=== PATIENT | female | born 2000 | race Hispanic/Latino ===

== ENCOUNTER 2024-01-26 10:09 | Emergency (ER) | payer SELFPAY ==
[2024-01-26] MEDS ORDERED: KETOROLAC 30 MG/ML INJ ONE (11:05)
[2024-01-26] MEDS ORDERED: HYDROCODONE/APAP 5/325 MG TAB ONE (11:05)
[2024-01-26] MEDS ORDERED: LIDOCAINE 2% W/EPI 1:200,000 MPF 20 ML VIAL IM ONE (11:05)
--- NOTE | 2024-01-26 11:32 | EDPHYS ---
Physician Documentation [facility] Name: Kareem Bridges Age: 23 yrs Sex: Female : 2000 Arrival Date: 01/26/2024 Time: 10:09 Bed 15 Private MD: ED Physician Fahad Peña HPI: 01/25 11:03 This 23 yrs old Female presents to ER via Unassigned with complaints of sb4 Abscess. 11:03 The patient presents with an abscess of the right axilla. Description: erythematous, sb4 fluctuant, swollen, tense, warm. Onset: The symptoms/episode began/occurred 4 day(s) ago. Possible cause(s): unknown. Associated signs and symptoms: Pertinent positives: erythema, Pertinent negatives: discharge, drainage, fever. The patient has not experienced similar symptoms in the past. 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 - Infectious Disease History:: Denies. - Social history:: Smoking status: Patient denies any tobacco usage or history of. ROS: 11:03 Constitutional: Negative for fever, chills, and weight loss, sb4 11:03 Skin: Positive for abscess, of the right axilla, 11:03 All other systems are negative, Exam: 11:03 Constitutional: This is a well developed, well nourished patient who is awake, alert, sb4 and in no acute distress. Head/Face: Normocephalic, atraumatic. Eyes: Extra-ocular motions intact. Periorbital areas with no swelling, redness, or edema. ENT: Mucous membranes moist. 11:03 Skin: abscess, that is moderate sized, of the right axilla, with fluctuance, with induration, with surrounding cellulitis, Vital Signs: 11:00 BP 125 / 86; Pulse 85; Resp 16; Temp 97.9; Pulse Ox 100% ; Weight 46.27 kg; db 11:30 BP 109 / 66; Pulse 73; Resp 16; Pulse Ox 100% on R/A; db 12:00 BP 124 / 76; Pulse 80; Resp 18; Pulse Ox 100% on R/A; db Procedures: 11:30 I \T\ D: Incision and drainage was performed for an abscess of the right axilla. Prepped sb4 with chlorhexadine. Anesthetized with 2 ml's 2% Lidocaine. Incised with #11 blade. Drained moderate amount purulent fluid. Dressing: bandaid the patient tolerated the procedure well. MDM: 10:21 Patient medically screened. reynaldo 11:30 Data reviewed: vital signs, nurses notes, and as a result, I will discharge patient. sb4 Counseling: I had a detailed discussion with the patient and/or guardian regarding the historical points, exam findings, and any diagnostic results supporting the discharge/admit diagnosis, to return to the emergency department if symptoms worsen or persist or if there are any questions or concerns that arise at home. Administered Medications: 11:12 Drug: Ketorolac IM 30 mg IM once Route: IM; Site: left deltoid; db 11:53 Follow up: Response: No adverse reaction; Pain is decreased db 11:14 Drug: HYDROcodone-acetaminophen PO 5 mg-325 mg 1 tabs PO once Route: PO; db 11:52 Follow up: Response: No adverse reaction; Pain is decreased db 11:32 Drug: Lidocaine-Epinephrine Infiltration -1%: (1:100,000) 10 ml 20 ml Infiltration sb4 once; to bedside Volume: 20 ml; Route: Infiltration; 11:52 Follow up: Response: No adverse reaction db 12:00 Drug: Trimethoprim-Sulfamethoxazole PO (160 mg-800 mg (DS) 1 tablet PO once Route: PO; db 12:13 Follow up: Response: No adverse reaction db Disposition Summary: 01/26/24 11:31 Discharge Ordered Notes: Location: Home sb4 Problem: new sb4 Symptoms: have improved sb4 Condition: Stable sb4 Diagnosis - Cutaneous abscess of right axilla sb4 Followup: sb4 - With: Emergency Department - When: As needed - Reason: Fever > 102 F, Worsening of condition Discharge Instructions: - Discharge Summary Sheet sb4 - Skin Abscess, Cgin-[id number] sb4 - Incision and Drainage, Care After sb4 Forms: - Antibiotic Education sb4 - Patient Portal Instructions sb4 - Leadership Thank You Letter sb4 Prescriptions: - Bactrim DS 800-160 mg Oral Tablet - take 1 tablet ORAL route every 12 hours for 10 days; 20 tablet; Refills: 0, sb4 Product Selection Permitted Signatures: Dispatcher [employer] EDFahad Hunter MD MD cha Benton, Danielle, RN RN Maria Luz Thompson PA-C PA-C sb4 Corrections: (The following items were deleted from the chart) 10:52 10:34 Misc. Order ordered. reynaldo sb4 10:59 10:34 Dressing - Wound ordered. reynaldo sb4 10:59 10:34 Sterile Gloves ordered. reynaldo sb4 10:59 10:34 Setup Suture Tray ordered. reynaldo sb4
[2024-01-26] MEDS ORDERED: SMZ./TMP. 800/160 MG TABLET ONE (12:02)
--- NOTE | 2024-01-26 12:18 | ER ---
Nurse's Notes [facility] Name: Kareem Bridges Age: 23 yrs Sex: Female : 2000 Arrival Date: 01/26/2024 Time: 10:09 Bed 15 Private MD: Diagnosis: Cutaneous abscess of right axilla Presentation: 01/25 11:00 Chief complaint: Patient states: RIGHT AXILLARY ABSCESS X 4 DAYS. TOOK NAPROXEN AT db HOME. HAS RIGHT ARM PAIN. 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 Coronavirus screen: Client denies travel out of the [place] in the last 14 days. At this time, the client does not indicate any symptoms associated with coronavirus-19. Ebola Screen: Patient negative for fever greater than or equal to 101.5 degrees Fahrenheit, and additional compatible Ebola Virus Disease symptoms Patient denies exposure to infectious person. Patient denies travel to an Ebola-affected area in the 21 days before illness onset. No symptoms or risks identified at this time. Initial Sepsis Screen: Does the patient meet any 2 criteria? No. Patient's initial sepsis screen is negative. Does the patient have a suspected source of infection? No. Patient's initial sepsis screen is negative. Risk Assessment: Do you want to hurt yourself or someone else? Patient reports no desire to harm self or others. Onset of symptoms was January 26, 2024. 11:00 Method Of Arrival: Ambulatory db 11:00 Acuity: GRISEL 4 db Triage Assessment: 11:00 General: Appears in no apparent distress. comfortable, Behavior is calm, cooperative. db Pain: Complains of pain in right arm and right axilla. Neuro: Level of Consciousness is awake, alert, obeys commands, Oriented to person, place, time, situation. 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 - Infectious Disease History:: Denies. - Social history:: Smoking status: Patient denies any tobacco usage or history of. Screenin:15 [facility] ED Fall Risk Assessment (Adult) History of falling in the last 3 months, db including since admission No falls in past 3 months (0 pts) Confusion or Disorientation No (0 pts) Intoxicated or Sedated No (0 pts) Impaired Gait No (0 pts) Mobility Assist Device Used No (0 pt) Altered Elimination No (0 pt) Score/Fall Risk Level 0 - 2 = Low Risk Oriented to surroundings, Maintained a safe environment. Abuse screen: Denies threats or abuse. Denies injuries from another. Nutritional screening: No deficits noted. Tuberculosis screening: No symptoms or risk factors identified. Assessment: 11:05 Reassessment: SEE TRIAGE FOR ASSESSMENT. db 11:30 Reassessment: Patient appears in no apparent distress at this time. Patient and/or db family updated on plan of care and expected duration. Pain level reassessed. Patient is alert, oriented x 3, equal unlabored respirations, skin warm/dry/pink. General: Appears in no apparent distress. comfortable, Behavior is calm, cooperative. Neuro: Level of Consciousness is awake, alert, obeys commands, Oriented to person, place, time, situation. Cardiovascular: No deficits noted. Derm: Abscess located on right axilla. 12:16 Reassessment: Patient appears in no apparent distress at this time. Patient and/or db family updated on plan of care and expected duration. Pain level reassessed. Patient is alert, oriented x 3, equal unlabored respirations, skin warm/dry/pink. Patient states feeling better. Vital Signs: 11:00 BP 125 / 86; Pulse 85; Resp 16; Temp 97.9; Pulse Ox 100% ; Weight 46.27 kg; db 11:30 BP 109 / 66; Pulse 73; Resp 16; Pulse Ox 100% on R/A; db 12:00 BP 124 / 76; Pulse 80; Resp 18; Pulse Ox 100% on R/A; db ED Course: 10:21 Patient arrived in ED. ra3 10:21 Maria Luz Hernandes PA-C is PHCP. sb4 10:21 Emilio Haynes MD is Attending Physician. sb4 10:21 Attending Physician role handed off by Emilio Haynes MD reynaldo 10:21 Fahad Peña MD is Attending Physician. reynaldo 11:00 Arm band placed on Patient placed in an exam room. db 11:03 Cristela Ramírez, CHIARA is Primary Nurse. db 11:15 Assist provider with I \T\ D: of an abscess on right axilla Set up I\T\D tray. Performed by db Maria Luz Hernandes PA-C. 11:54 Triage completed. db 12:15 Patient has correct armband on for positive identification. Bed in low position. Call db light in reach. Side rails up X 1. Provided Education on: DISCHARGE. Pulse ox on. NIBP on. Warm blanket given. Pillow given. 12:15 Patient did not have IV access during this emergency room visit. db Administered Medications: 11:12 Drug: Ketorolac IM 30 mg IM once Route: IM; Site: left deltoid; db 11:53 Follow up: Response: No adverse reaction; Pain is decreased db 11:14 Drug: HYDROcodone-acetaminophen PO 5 mg-325 mg 1 tabs PO once Route: PO; db 11:52 Follow up: Response: No adverse reaction; Pain is decreased db 11:32 Drug: Lidocaine-Epinephrine Infiltration -1%: (1:100,000) 10 ml 20 ml Infiltration sb4 once; to bedside Volume: 20 ml; Route: Infiltration; 11:52 Follow up: Response: No adverse reaction db 12:00 Drug: Trimethoprim-Sulfamethoxazole PO (160 mg-800 mg (DS) 1 tablet PO once Route: PO; db 12:13 Follow up: Response: No adverse reaction db Medication: 12:15 VIS not applicable for this client. db Outcome: 11:31 Discharge ordered by . sb4 12:15 Discharged to home ambulatory, db 12:15 Condition: stable 12:15 Discharge instructions given to patient, Instructed on discharge instructions, follow up and referral plans. Prescriptions given X 1, 12:17 Patient left the ED. db Signatures: Fahad Peña MD MD cha Benton, Danielle, RN RN Maria Luz Thompson PA-C PA-C sb4 Tamia Brantley ra3
[2024-01-26 12:21] VITALS: TEMP 97.9; O2SAT 100
[2024-01-26 12:24] VITALS: BP 124/76
== END 2024-01-26 12:17 | disposition home or self-care (01) ==
LOC: ER 10:09
PROC: 0H9BXZZ Drainage of Right Upper Arm Skin, External Approach (ICD-10-PCS; principal; 2024-01-26)
DX: L02.411 Cutaneous abscess of right axilla (principal); L03.111 Cellulitis of right axilla
CPT/HCPCS: 96372; 99284